=== PATIENT | male | born 1950 | race Caucasian/White ===

== ENCOUNTER 2017-03-16 06:22 | Day surgery (SDC) | payer MEDICARE, OTHER ==
[2017-03-16] VITALS (9 sets, daily range): BP systolic 126–153; BP diastolic 68–88; PULSE 63–93; RESP 14–16; O2SAT 96–98
[~2017-03-16] VITALS: Ht 180.3 cm; Wt 92.3 kg
[~2017-03-16 06:22] MED LIST: CeFAZolin Inj 2 GM in IV Premix 1 EACH IV SCH; HYDR12.55 PO; LISI-567 PO
[2017-03-16] MEDS ORDERED: Ondansetron 2 mg/mL 2 mL Inj ONE (06:23)
[2017-03-16] MEDS ORDERED: Propofol 10,000 mCg/mL 20 mL Inj ONE (06:23)
[2017-03-16] MEDS ORDERED: Dexamethasone 4 mg/mL Inj ONE (06:23)
[2017-03-16] MEDS ORDERED: fentaNYL-PF 50 mCg/mL 2 mL Inj ONE (06:23)
[2017-03-16] MEDS ORDERED: EPHEDrine/NS 5 mg/mL 5 mL Syringe ONE (06:23)
--- NOTE | 2017-03-16 07:01 | PCM.HPANE ---
Patient Data Surgeon Admitting Provider: Attending Provider:Mauricio Ch MD Primary Care Physician:Kendall Ceja MD Other Provider:Kiki Baldwiningham Anesthesia Reason for Visit Umbilical Hernia Ht/WT & BMI Height (Feet): 5 Height (Inches): 11 Weight (Kilograms): 94.34 Body Mass Index 29.00 Allergies Coded Allergies: No Known Allergies (Verified Allergy, Unknown, 09/21/14) Past Anesthesia History Anesthesia History: Positive for:: Anesthesia Reactions (nausea) Diabetes History Hx Diabetes?: No MRSA MRSA: No Medications Hypertension Medication: Yes Home Meds Incl Beta Yvrose: No Reported Medications Atorvastatin Calcium 10 Mg [id number] Mg PO DAILY Ref 0 03/16/17 Hydrochlorothiazide 12.5 Mg Yigkze58.5 Mg PO DAILY 30 Days Ref 0 03/13/17 Lisinopril 20 Mg [id number] Mg PO DAILY 30 Days Ref 0 03/13/17 History History of ENT Problems?: No HEENT History: Denies:: Abnormal Airway Cataracts Difficult Intubation Dysphagia Glaucoma Hearing Problem Sinus Problem TMJ Denture Type: None Teeth Condition: Within Normal Limits Hx of Heart Problems?: Yes Cardiovascular History: Positive for:: Hypertension Denies:: Congestive Heart Failure Hx of Respiratory Problem?: No Respiratory History: Denies:: Tuberculosis Hx Neurologic Problems?: No Hx of GI Problems?: No Hx of Problems?: No Skin History: Denies:: History Skin Disorders? Pressure Ulcers Hx Musculoskeletal Problems?: No Hx of Psycho/Social Problems?: No Hx Surgeries?: Yes (bilat ing hernia repair, ankel surgery, umbilical hernia repair) Hx Any Other Health Problems?: Yes Other History: Denies:: Cancer Thyroid Disease Hx Diabetes: No Hx Alcohol Use: NoHx Substance Use: No Stop/Bang S-Snoring: Do You Snore Loudly: No T-Tired: feel tired, fatigued: No O-Obsered: Observed not breath: No P-Blood Pressure: treated: Yes B- Body Mass Index > 35 kg/m2: No A- Age over 50: Yes N- Neck Large Circumference: No G- Gender Male: Yes HIPOLITO Total Score: 3 Risk Assessment Category Category 1A: Patient has history of documented sleep apnea, and HAS NOT received any narcotic, sedative or anesthesia administration during this stay. Category 1B: Patient has history of documented sleep apnea, and HAS received any narcotic , sedative or anesthesia administration during this stay Category 2: Patient has SUSPECTED Obstructive Sleep Apnea, and HAS received any narcotic , sedative or anesthesia administration during this stay. Category 3: Patient has SUSPECTED Obstructive Sleep Apnea and HAS NOT received narcotic, sedative or anesthesia administration during this stay. Category 4: Outpatient in Procedural Areas with known sleep apnea or who screen positive for High Risk via the STOP/BANG questionnaire. Exam Exam General Appearance: Alert, Oriented X3, Cooperative, No Acute Distress HEENT/AIRWAY: MP 2, Neck Movement (nl), Mouth Opening (nl) Lungs: Clear to Auscultation Heart: Exam Unremarkable Plan Impression Patient chart reviewed, patient interviewed and anesthestic plan with risks, benefits, and alternatives discussed, and informed consent obtained. ASA Physical Status: ASA2 Mod Systemic Disease Anesthetic Plan: GA Bene/Risks/Altern/Consents: Yes HP Complete Prior to Induction: Yes Isra Abdi MD March 16, 2017 07:01
[2017-03-16] MEDS: Lactated Ringer's 1,000 ML IV SCH ×2 (07:18→08:56)
[2017-03-16] MEDS ORDERED: ATOR10TA66 PO (07:18)
[2017-03-16] MEDS ORDERED: Bupivacaine-MPF 0.25%/EPI 30 mL Inj INFILTRATE ONE (08:56)
[2017-03-16] MEDS ORDERED: Lactated Ringer's 500 ML IV PRN (09:02)
[2017-03-16] MEDS ORDERED: Lactated Ringer's 1,000 ML IV SCH (09:02)
[2017-03-16] MEDS ORDERED: Labetalol 5 mg/mL 4 mL Inj IV PRN (09:05)
[2017-03-16] MEDS ORDERED: hydrALAZINE 20 mg/mL Inj IVPUSH PRN (09:05)
[2017-03-16] MEDS ORDERED: HYDROmorphone 1 mg/mL Inj IVPUSH PRN (09:05)
[2017-03-16] MEDS ORDERED: EPHEDrine Sulfate 50 mg/mL Inj IVPUSH PRN (09:05)
[2017-03-16] MEDS ORDERED: Ondansetron 2 mg/mL 2 mL Inj IVPUSH PRN (09:05)
[2017-03-16] MEDS ORDERED: Atropine 0.4 mg/mL Inj IVPUSH PRN (09:05)
[2017-03-16] MEDS ORDERED: Phenylephrine 10,000 mCg/mL Inj IVPUSH PRN (09:05)
[2017-03-16] MEDS ORDERED: Dexamethasone 4 mg/mL Inj IVPUSH PRN (09:05)
--- NOTE | 2017-03-16 09:42 | PCM.ANEP1 ---
Post Anesthesia PACU Phase 1 Assessment Vital Signs Vital Signs Date Time Temp Pulse Resp B/P Pulse Ox O2 Delivery O2 Flow Rate FiO2 03/16/17 07:19 36.2 74 16 153/83 98 Room Air Anesthetic Administered: GA Level of Alertness: Awake, talking INMAN's with Equal Strength: Yes Pain: No Nausea or Vomiting: No CV Function & Hydration Stable: No Airway Device: Oxygen Delivery: Room Air Lungs: Normal Air Movement PACU Phase 2 Assessment Complications: No Follow up Care: No Patient Instructions Provided: N/A Isra Abdi MD March 16, 2017 09:42
[2017-03-16] MEDS: fentaNYL-PF 50 mCg/mL 2 mL Inj IVPUSH PRN ×3 (09:45→10:25)
--- NOTE | 2017-03-16 09:50 | OP ---
[address] [address] OPERATIVE REPORT PATIENT: ANGELA ACEVEDO : 1950 MR#: [id number] ADMIT: 03/16/2017 JOB ID: [id number] DATE OF SURGERY: 03/16/2017 ANESTHESIA: General. PREOPERATIVE DIAGNOSIS(ES): Umbilical hernia. POSTOPERATIVE DIAGNOSIS(ES): Umbilical hernia. OPERATIVE PROCEDURE: Open repair of umbilical hernia using mesh. SURGEON: Dr. Mauricio Ch. POLICY VALUE CALCULATOR: Osmel Rizvi PA-C (the licensed occupational therapy assistant was required for the safe and timely completion of the case). COMPLICATIONS: None. ESTIMATED BLOOD LOSS: Less than 5 mL. CONDITION: Satisfactory. SPECIMEN: None. FINDINGS: There is an approximately 1 cm fascial defect. This was repaired with a 4.3 cm Ventralex patch. INDICATION/SIGNIFICANT HISTORY: The patient is a 66-year-old man who developed an umbilical hernia several months ago. He had a single episode of terrible localized pain prompting him to be referred to me. Initially he elected not to undergo repair but then for reasons that are not entirely clear to me decided to proceed with surgery. OPERATIVE TECHNIQUE: The patient was taken to the operating room and placed in the supine position. General anesthesia was administered and perioperative antibiotics were given. The abdomen was prepped and draped in a standard surgical fashion and a procedure pause was performed. Local anesthetic was injected. A curvilinear infraumbilical incision was made and dissection carried down through skin and subcutaneous tissue. The umbilical stalk was circumferentially dissected and then transected. The hernia sac was encountered and then reduced. The anterior aspect of the fascia was cleared. There was an approximately 1 cm fascial defect. Given the patient's obesity, I elected to place mesh. A 4.3 cm Ventralex patch was then placed in a sublay fashion. I then closed the defect primarily with 2-0 Prolene sutures incorporating the mesh into the closure. The umbilicus then tacked down to the fascia using a 3-0 PDS suture. The skin was closed with 3-0 PDS deep dermal followed by running 4-0 Monocryl. The entire procedure was well tolerated without complication.
[2017-03-16] MEDS: oxyCODONE-Acetamin 5-325 mg Tablet PO PRN ×2 (10:55→12:00)
[2017-03-16] MEDS ORDERED: Ketorolac 15 mg/mL Inj ONE (11:05)
== END 2017-03-16 23:59 | disposition home or self-care (01) ==
LOC: SAS 06:22
PROVIDERS: ATTEND General Practice
DX: K42.9 Umbilical hernia without obstruction or gangrene (principal); I10 Essential (primary) hypertension
CPT/HCPCS: 49585; C1781; J0690; J1100; J1885; J2250; J2405; J3010; J7120